=== PATIENT | male | born 1990 | race Caucasian/White ===

== ENCOUNTER 2017-07-11 16:56 | Emergency (ER) | payer OTHER ==
[~2017-07-11] VITALS: Ht 170.2 cm; Wt 70.0 kg
[2017-07-11] MEDS ORDERED: LORAZEPAM 2MG/ML CPJ IM ONE (18:00)
[2017-07-11] MEDS ORDERED: BACITRACIN ZINC OINT UDPKT TOP ONE (18:00)
[2017-07-11] MEDS ORDERED: LIDOCAINE HCL 1% 20ML VIAL (Pyxis) INJ MC ONE (18:00)
[2017-07-11] MEDS ORDERED: TETANUS, DIPHTHERIA, PERTUSSIS VAC/PF 0.5ML (>7YR OLD) IM ONE (18:00)
[2017-07-11] MEDS ORDERED: LORAZEPAM 1MG TABLET ONE (18:32)
[2017-07-11] MEDS ORDERED: CEPHALEXIN 500MG CAPSULE PO ONE (19:00)
[2017-07-11 19:10] VITALS: BP 136/89
== END 2017-07-11 19:24 | disposition home or self-care (01) ==
LOC: ER 17:12
DX: S61.412A Laceration without foreign body of left hand, initial encounter (principal); S61.212A Laceration without foreign body of right middle finger without damage to nail, initial encounter; W26.0XXA Contact with knife, initial encounter; Y93.89 Activity, other specified; Y92.89 Other specified places as the place of occurrence of the external cause; Y99.8 Other external cause status
CPT/HCPCS: 12001; 90471; 90715; 96372; 99284; J3490; X7700; Z7610

== ENCOUNTER 2021-07-09 23:49 | Emergency (ER) | payer MEDICAID, OTHER ==
[~2021-07-09] VITALS: Ht 185.4 cm; Wt 82.0 kg
[2021-07-10] MEDS ORDERED: NALO4SPR BOTHNSTRLS (00:54)
[2021-07-10] MEDS ORDERED: NALOXONE HCL 0.4 MG/ML 1ML VIAL IM ONE (01:00)
[2021-07-10 01:30] VITALS: BP 129/77
== END 2021-07-10 01:53 | disposition home or self-care (01) ==
LOC: ER 23:49
DX: T40.2X1A Poisoning by other opioids, accidental (unintentional), initial encounter (principal); R41.82 Altered mental status, unspecified; R55 Syncope and collapse; R11.10 Vomiting, unspecified; F11.988 Opioid use, unspecified with other opioid-induced disorder; Y92.018 Other place in single-family (private) house as the place of occurrence of the external cause
CPT/HCPCS: 96372; 99283; J2310